=== PATIENT | male | born 1950 | race Caucasian/White ===

== ENCOUNTER 2017-01-18 11:52 | Emergency (ER) | payer MEDICARE, OTHER ==
--- NOTE | 2017-01-18 12:29 | ED Physician Documentation ---
History of Present Illness - Stated complaint Stated Complaint: RAPID HEART RATE - Chief complaint Chief Complaint: Cardiac - History obtained from History obtained from: Patient - History of Present Illness Timing: How many weeks ago (3) Pain level max: 0 Pain level now: 0 Improved by: nothing Worsened by: nothing - Additonal information Additional information: 67 yo M with h/o gastric bypass several years ago. Also has htn and anxiety. noted B LE swelling for 3 weeks. started on lasix by his PCP. Has not been taking it, but took a dose yesterday and still swollen today. States felt anxious this am as well and may have felt his heart skip a beat. Normally sleeps in his recliner. Review of Systems Constitutional: denies: Fever, Chills Nose: denies: Rhinorrhea / runny nose, Congestion Throat: denies: Sore throat Cardiac: reports: Palpitations. denies: Chest pain / pressure Respiratory: denies: Cough GI: denies: Nausea, Vomiting Skin: denies: Rash Musculoskeletal: denies: Neck pain, Back pain Neurologic: denies: Headache PD PAST MEDICAL HISTORY - Past Medical History Past Medical History: No Cardiovascular: Hypertension Respiratory: Sleep apnea, CPAP use Psych: Anxiety Musculoskeletal: Gout - Past Surgical History Past Surgical History: No - Present Medications Home Medications: Ambulatory Orders Medication Instructions Recorded Confirmed Aspirin 01/18/17 Enalapril Maleate 01/18/17 Furosemide 01/18/17 LORazepam [Ativan] 0.5 mg PO BID PRN #7 tablet 01/18/17 Omeprazole 01/18/17 Prazosin [Minipress] 2 01/18/17 Propranolol [Inderal] 01/18/17 - Allergies Allergies/Adverse Reactions: Allergies Allergy/AdvReac Type Severity Reaction Status Date / Time No Known Drug Allergies Allergy Verified 01/18/17 12:04 - Social History Does the pt smoke?: No Smoking Status: Never smoker Does the pt drink ETOH?: No Does the pt have substance abuse?: No - Immunizations Immunizations: TDAP >10years/unknown PD ED PE NORMAL - Vitals Vital signs reviewed: Yes - General General: Alert and oriented X 3, No acute distress, Well developed/nourished - HEENT HEENT: Moist mucous membranes - Neck Neck: Supple, no meningeal sign - Cardiac Cardiac: RRR, Strong equal pulses - Respiratory Respiratory: No respiratory distress, Clear bilaterally - Abdomen Abdomen: Soft, Non tender, Non distended - Back Back: No CVA TTP, No spinal TTP - Derm Derm: Warm and dry, No rash - Extremities Extremities: Other (B LE edema 2+, symmetrical) - Neuro Neuro: Alert and oriented X 3 - Psych Psych: Other (anxious appearing.) Results - Vitals Vitals: Vital Signs - 24 hr 01/18/17 01/18/17 01/18/17 12:02 12:16 13:04 Temperature 36.8 C Heart Rate 61 57 L Respiratory 16 16 Rate Blood Pressure 148/69 H 137/58 H O2 Saturation 97 98 01/18/17 14:05 Temperature Heart Rate 59 L Respiratory 16 Rate Blood Pressure 147/65 H O2 Saturation 96 Oxygen O2 Source Room air - Labs Labs: Laboratory Tests 01/18/17 01/18/17 01/18/17 12:05 12:05 12:05 WBC 6.8 RBC 4.63 L Hgb 13.0 L Hct 38.6 L MCV 83.5 MCH 28.0 MCHC 33.5 RDW 13.9 Plt Count 202 MPV 9.3 Neut # 5.2 Lymph # 1.1 L [place] # 0.4 Eos # 0.1 Baso # 0.0 Absolute Nucleated RBC 0.00 Nucleated RBCs 0.0 Sodium 138 Potassium 4.3 Chloride 101 Carbon Dioxide 28 Anion Gap 9.0 BUN 23 H Creatinine 1.2 Estimated GFR (MDRD) 61 L Glucose 105 H Calcium 9.8 Total Bilirubin 1.0 AST 30 ALT 21 Alkaline Phosphatase 101 Troponin I < 0.04 B-Natriuretic Peptide Total Protein 7.3 Albumin 4.1 Globulin 3.2 Albumin/Globulin Ratio 1.3 Lipase 29 01/18/17 13:13 WBC RBC Hgb Hct MCV MCH MCHC RDW Plt Count MPV Neut # Lymph # [place] # Eos # Baso # Absolute Nucleated RBC Nucleated RBCs Sodium Potassium Chloride Carbon Dioxide Anion Gap BUN Creatinine Estimated GFR (MDRD) Glucose Calcium Total Bilirubin AST ALT Alkaline Phosphatase Troponin I B-Natriuretic Peptide 177 H Total Protein Albumin Globulin Albumin/Globulin Ratio Lipase - Rads (name of study) cxr Radiology: Prelim report reviewed, EMP read contemporaneously, See rad report ( Mild cardiomegaly. ) PD MEDICAL DECISION MAKING - ED course Complexity details: reviewed results, re-evaluated patient, considered differential, d/w patient ED course: Patient is a 67-year-old male with bilateral peripheral edema, this has been chronic for him, but worsening over the past several weeks. He did take a single dose of Lasix without relief. Recommend that he stay on this for a longer amount of time to allow the medication to work. Also recommended elevating his legs at home. No evidence of DVT clinically. No calf tenderness. Symmetrical swelling bilaterally. No acute findings on chest x- ray. Patient counseled regarding signs and symptoms for which I believe and urgent re-evaluation would be necessary. Patient with good understanding of and agreement to plan and is comfortable going home at this time This document was made in part using voice recognition software. While efforts are made to proofread this document, sound alike and grammatical errors may occur. Patient also has severe anxiety, will prescribe a small amount of Ativan for him until he can see his doctor. Departure - Departure Disposition: 01 Home, Self Care Clinical Impression: Peripheral edema, Anxiety Condition: Good Instructions: ED Edema Legs Bilateral Follow-Up: Enzo Blake MD [Primary Care Provider] - Within 1 week Prescriptions: LORazepam [Ativan] 0.5 mg PO BID PRN #7 tablet PRN Reason: Anxiety Comments: Continue your medications at home. Return if you worsen. Elevate your legs at home. Do not drive or operate heavy machinery while taking the ativan Discharge Date/Time: 01/18/17 14:05
[2017-01-18 12:55] LABS: BASOPHILS % (AUTO) 0.5 %; EOSINOPHILS # (AUTO) 0.1 10^3/uL (0.0-0.7); EOSINOPHILS % (AUTO) 1.3 %; HCT - HEMATOCRIT 38.6 % (42.0-52.0); LYMPHOCYTES # (AUTO) 1.1 10^3/uL (1.5-3.5); LYMPHOCYTES % (AUTO) 16.8 %; MEAN CORPUSCULAR HGB CONC 33.5 g/dL (32.0-36.0); MEAN CORPUSCULAR VOLUME 83.5 fL (80.0-94.0); MEAN PLATELET VOLUME 9.3 fL (7.4-11.4); MONOCYTES # (AUTO) 0.4 10^3/uL (0.0-1.0); MONOCYTES % (AUTO) 5.6 %; NEUTROPHILS # (AUTO) 5.2 10^3/uL (1.5-6.6); NEUTROPHILS % (AUTO) 75.8 %; RED BLOOD COUNT 4.63 10^6/uL (4.70-6.10); RED CELL DISTRIBUTION WIDTH 13.9 % (12.0-15.0); UNCORRECTED WHITE BLOOD COUNT 6.8 x10^3/uL; WHITE BLOOD COUNT 6.8 x10^3/uL (4.8-10.8)
[2017-01-18 13:06] LABS: ALBUMIN/GLOBULIN RATIO 1.3 (1.0-2.2); CALCIUM 9.8 mg/dL (8.5-10.3); CREATININE 1.2 mg/dL (0.6-1.2); POTASSIUM 4.3 mmol/L (3.5-5.0); TOTAL PROTEIN 7.3 g/dL (6.7-8.2)
--- NOTE | 2017-01-18 13:19 | XRAY Preliminary Report ---
Exam: XR Chest 1 View IMPRESSION: Mild cardiomegaly. [facility] SITE ID: [id number]
--- NOTE | 2017-01-18 13:26 | XRAY Report ---
EXAM: CHEST RADIOGRAPHY EXAM DATE: 01/18/2017 01:06 PM. CLINICAL HISTORY: Palpitations. COMPARISON: None. TECHNIQUE: 1 view. FINDINGS: Lungs/Pleura: No focal opacities evident. No pleural effusion. No pneumothorax. Mediastinum: Mild cardiomegaly. No adenopathy. Other: None. IMPRESSION: Mild cardiomegaly. [facility] Referring Provider Line: [phone] SITE ID: [id number]
[2017-01-18 14:07] VITALS: BP 147/65
== END 2017-01-18 14:05 | disposition home or self-care (01) ==
LOC: ED 11:52
DX: R60.9 Edema, unspecified (principal); F41.9 Anxiety disorder, unspecified; Z98.84 Bariatric surgery status; I10 Essential (primary) hypertension; M10.9 Gout, unspecified; G47.30 Sleep apnea, unspecified; Z79.82 Long term (current) use of aspirin
CPT/HCPCS: 36415; 71010; 80053; 83690; 83880; 84484; 85025; 93005; 99283; 99284

== ENCOUNTER 2017-09-24 10:39 | Emergency (ER) | payer MEDICARE, OTHER ==
[2017-09-24 10:51] VITALS: BP 155/73
--- NOTE | 2017-09-24 12:11 | ED Physician Documentation ---
PD HPI UPPER EXT INJURY - Stated complaint Stated Complaint: R HAND PX-SWELLING - Chief complaint Chief Complaint: Ext Problem - History obtained from History obtained from: Patient - History of Present Illness Location: Right, Wrist, Hand Type of injury: Other (he does use canes for walking due to bad arthritic knees , so repetitive use. Noted onset of pain in right wrist with some swelling the past couple of days. Very painful.). No: Fall, Twist Where injury occurred: Home Timing - onset: How many days ago (few) Timing - duration: Days Timing - details: Gradual onset, Still present Improved by: Rest Worsened by: Moving, Palpating, Other (gripping his canes) Associated symptoms: Swelling. No: Weakness, Numbness, Discolored Contributing factors: No: Anticoagulated Similar symptoms before: Has not had sx before (not in wrist, but on questioning has had toe pain c/w gout in the past) Recently seen: Not recently seen Review of Systems Constitutional: denies: Fever, Chills Neurologic: denies: Focal weakness, Numbness PD PAST MEDICAL HISTORY - Past Medical History Past Medical History: Yes Cardiovascular: Hypertension Respiratory: Sleep apnea, CPAP use Psych: Anxiety Musculoskeletal: Osteoarthritis, Gout - Past Surgical History Past Surgical History: No - Present Medications Home Medications: Ambulatory Orders Medication Instructions Recorded Confirmed Enalapril Maleate 01/18/17 LORazepam [Ativan] 0.5 mg PO BID PRN #7 tablet 01/18/17 Prazosin [Minipress] 2 01/18/17 Propranolol [Inderal] 01/18/17 Cephalexin [Keflex] 500 mg PO QID #24 capsule 09/24/17 Dexamethasone [Decadron] 4 mg PO DAILY #5 tablet 09/24/17 HYDROcod/ACETAM 5/325 [[place] 5/325] 1 tab PO Q6H PRN #15 tablet 09/24/17 Naproxen [Naprosyn] 500 mg PO BID PRN #20 tablet 09/24/17 - Allergies Allergies/Adverse Reactions: Allergies Allergy/AdvReac Type Severity Reaction Status Date / Time No Known Drug Allergies Allergy Verified 09/24/17 10:51 - Social History Does the pt smoke?: No Smoking Status: Never smoker Does the pt drink ETOH?: No Does the pt have substance abuse?: No - Immunizations Immunizations: TDAP >10years/unknown, Other immun current PD ED PE NORMAL - Vitals Vital signs reviewed: Yes - General General: Alert and oriented X 3, No acute distress, Well developed/nourished, Other (kyphotic, slow walking with poor knee mobility. Good mood and cheerful. ) - Derm Derm: Normal color, Warm and dry - Extremities Extremities: Other (right wrist with swelling and faint redness/warmth dorsally wrist and proximal hand. No skin sores. No deformity. Very tender locally. Palmar side not tender. ) - Neuro Neuro: Alert and oriented X 3, No motor deficit, No sensory deficit Results - Vitals Vitals: Oxygen O2 Source Room air PD MEDICAL DECISION MAKING - ED course Complexity details: considered differential (no acute trauma. Has pain and some swelling dorsum of wrist. Consider arthritis or could be gout. He has had gout in toe in the past. No skin sores nor coloring to suggest infection. ), d/w patient Departure - Departure Disposition: 01 Home, Self Care Clinical Impression: Right wrist pain, Acute arthritis Condition: Stable Record reviewed to determine appropriate education?: Yes Instructions: ED Arthritis Gout Follow-Up: Enzo Blake MD [Primary Care Provider] - Prescriptions: Cephalexin [Keflex] 500 mg PO QID #24 capsule Dexamethasone [Decadron] 4 mg PO DAILY #5 tablet HYDROcod/ACETAM 5/325 [[place] 5/325] 1 tab PO Q6H PRN #15 tablet PRN Reason: Pain Naproxen [Naprosyn] 500 mg PO BID PRN #20 tablet PRN Reason: Pain Comments: Use a wrist splint for comfort for the next several days to week. Gentle range of motion periodically. This may be just regular arthritis from inflammation and use. Consider the idea of gout as a cause. Use Decadron and naproxen as directed for the next 5-7 days. Add Tylenol or hydrocodone if needed for pain. If you have increasing redness or warmth to it or red streaks up, then consider infection instead and add the antibiotics. At this point I would think it more inflammation. Discharge Date/Time: 09/24/17 13:19
[2017-09-24] MEDS ORDERED: IBUPROFEN 600 MG TABLET PO STA (12:12)
[2017-09-24] MEDS ORDERED: ACETAMINOPHEN 325 MG TABLET PO STA (12:12)
[2017-09-24] MEDS ORDERED: DEXAMETHASONE 10 MG/ML VIAL PO STA (12:12)
== END 2017-09-24 13:19 | disposition home or self-care (01) ==
LOC: ED 10:39
DX: M25.531 Pain in right wrist (principal); M19.90 Unspecified osteoarthritis, unspecified site; I10 Essential (primary) hypertension
CPT/HCPCS: 99283; A9270

== ENCOUNTER 2019-07-28 20:40 | Emergency (ER) | payer MEDICARE, OTHER ==
--- NOTE | 2019-07-28 21:02 | ED Physician Documentation ---
PD HPI UPPER EXT INJURY - Stated complaint Stated Complaint: RT SHOULDER PX - Chief complaint Chief Complaint: Ext Problem - History obtained from History obtained from: Patient - History of Present Illness Location: Right, Shoulder, Arm Type of injury: Fall (He states he normally walks with 2 canes due to his knee pains. He is due to get a knee replacement in September. He was walking down some steps holding the rail and lost balance on the slippery step and fell down 2 steps while still holding the rail causing a backwards twisting of his shoulder. He has pain in the shoulder. He denies other injury.) Where injury occurred: Home Timing - onset: Today (30 minutes [facility] NURSE) Timing - details: Abrupt onset, Still present Worsened by: Moving, Palpating Associated symptoms: No: Weakness, Numbness Similar symptoms before: Has not had sx before Recently seen: Not recently seen Review of Systems Skin: denies: Abrasion (s), Laceration (s) Musculoskeletal: denies: Neck pain Neurologic: denies: Focal weakness, Numbness, Head injury PD PAST MEDICAL HISTORY - Past Medical History Past Medical History: Yes Cardiovascular: Hypertension Respiratory: Sleep apnea, CPAP use Psych: Anxiety Musculoskeletal: Osteoarthritis, Gout - Past Surgical History Past Surgical History: Yes General: Other - Present Medications Home Medications: Ambulatory Orders Medication Instructions Recorded Confirmed Enalapril Maleate 10 mg PO DAILY 01/18/17 07/28/19 Prazosin [Minipress] 2 mg PO DAILY 01/18/17 07/28/19 ALPRAZolam [Alprazolam] 0.5 tab PO TID PRN 07/28/19 07/28/19 Omeprazole 20 mg PO QDAC 07/28/19 07/28/19 Propranolol HCl 1 tab PO BID 07/28/19 07/28/19 Zolpidem Tartrate [Ambien] 10 mg PO QPM PRN 07/28/19 07/28/19 - Allergies Allergies/Adverse Reactions: Allergies Allergy/AdvReac Type Severity Reaction Status Date / Time No Known Drug Allergies Allergy Verified 07/28/19 20:45 - Social History Does the pt smoke?: No Smoking Status: Never smoker Does the pt drink ETOH?: No Does the pt have substance abuse?: No - Immunizations Immunizations are current?: Yes Immunizations: TDAP >10years/unknown, Other immun current - POLST Patient has POLST: No PD ED PE NORMAL - Vitals Vital signs reviewed: Yes - General General: Alert and oriented X 3, Well developed/nourished, Other (appears uncomfortable with guarded ROM of the right shoulder) - HEENT HEENT: Atraumatic - Neck Neck: Supple, no meningeal sign, No bony TTP - Derm Derm: Normal color, Warm and dry - Neuro Neuro: Alert and oriented X 3, No motor deficit, No sensory deficit, Normal speech Results - Vitals Vitals: Vital Signs - 24 hr 07/28/19 07/28/19 20:46 22:38 Temperature 36.5 C 36.7 C Heart Rate 70 78 Respiratory 16 18 Rate Blood Pressure 200/100 H 181/101 H O2 Saturation 99 98 Oxygen O2 Source Room air - Rads (name of study) right humerus Radiology: Prelim report reviewed, See rad report (no fractures nor dislocation) PD MEDICAL DECISION MAKING - ED course Complexity details: considered differential (There is no fracture seen on x-ray. His shoulders hurting less now that he has had some time here in the ER. There is no gross laxity on range of motion. He does need to use 2 canes to help support to him while walking due to his knees. I feel his shoulder will be okay using the cane lightly on that side. He is due to get a walker tomorrow so declined one from here tonight. This may be a little sturdier for him for support with the to arms.), d/w patient Departure - Departure Disposition: 01 Home, Self Care Clinical Impression: Right shoulder strain Qualifiers: Encounter type: initial encounter Qualified Code(s): S46.911A - Strain of unspecified muscle, fascia and tendon at shoulder and upper arm level, right arm, initial encounter Condition: Stable Record reviewed to determine appropriate education?: Yes Instructions: ED Sprain Shoulder Follow-Up: Enzo Blake MD [Primary Care Provider] - Comments: It is okay to be using your arm with your cane or a walker based on tolerance of comfort. If you do have a strain or partial tear of the shoulder muscles, you particularly to 1 to be doing overhead reaching, heavy lifting or push pull. Otherwise some use is okay. You could use some anti-inflammatories such as ibuprofen or naproxen twice daily for the next week or so. Add Tylenol 4 times a day if needed for pains. Call your orthopedist and see if you would like to follow-up with you in about a week or so, to see how your shoulder is healing. Discharge Date/Time: 07/28/19 22:43
--- NOTE | 2019-07-28 21:07 | ED Physician Documentation ---
History of Present Illness - Stated complaint Stated Complaint: RT SHOULDER PX - Chief complaint Chief Complaint: Ext Problem PD PAST MEDICAL HISTORY - Past Medical History Cardiovascular: Hypertension Respiratory: Sleep apnea, CPAP use Psych: Anxiety Musculoskeletal: Osteoarthritis, Gout - Past Surgical History Past Surgical History: No - Present Medications Home Medications: Ambulatory Orders Medication Instructions Recorded Confirmed Enalapril Maleate 01/18/17 LORazepam [Ativan] 0.5 mg PO BID PRN #7 tablet 01/18/17 Prazosin [Minipress] 2 01/18/17 Propranolol [Inderal] 01/18/17 Cephalexin [Keflex] 500 mg PO QID #24 capsule 09/24/17 HYDROcod/ACETAM 5/325 [[place] 5/325] 1 tab PO Q6H PRN #15 tablet 09/24/17 Naproxen [Naprosyn] 500 mg PO BID PRN #20 tablet 09/24/17 dexAMETHasone [Decadron] 4 mg PO DAILY #5 tablet 09/24/17 - Allergies Allergies/Adverse Reactions: Allergies Allergy/AdvReac Type Severity Reaction Status Date / Time No Known Drug Allergies Allergy Verified 07/28/19 20:45 - Social History Does the pt smoke?: No Smoking Status: Never smoker Does the pt drink ETOH?: No Does the pt have substance abuse?: No - Immunizations Immunizations: TDAP >10years/unknown, Other immun current Results - Vitals Vitals: Vital Signs - 24 hr 07/28/19 20:46 Temperature 36.5 C Heart Rate 70 Respiratory 16 Rate Blood Pressure 200/100 H O2 Saturation 99 Oxygen O2 Source Room air
[2019-07-28] MEDS ORDERED: oxyCODONE 5 MG TABLET PO STA (21:18)
[2019-07-28] MEDS ORDERED: ACETAMINOPHEN 325 MG TABLET PO STA (21:18)
--- NOTE | 2019-07-28 21:59 | XRAY Report ---
Reason: twisted right shoulder when fell on stairs Procedure Date: 07/28/2019 Accession Number: [id number] / [id number] Procedure: XR - Humerus RT CPT Code: Final Report FULL RESULT: EXAM: RIGHT HUMERUS RADIOGRAPHY EXAM DATE: 07/28/2019 09:37 PM. CLINICAL HISTORY: Twisted right shoulder when fell on stairs. COMPARISON: None. TECHNIQUE: 2 views. FINDINGS: Bones: Small spur off the posterior aspect of the olecranon. No fractures or bone lesions. Joints: Normal. No effusions or subluxations in the visualized shoulder or elbow joints. Soft Tissues: Normal. No soft tissue swelling. IMPRESSION: Normal humerus radiography. [facility]
[2019-07-28] MEDS ORDERED: oxyCODONE/ACET 5/325 Prepack 4 PO STA (22:32)
[2019-07-28 22:43] VITALS: BP 181/101
== END 2019-07-28 22:43 | disposition home or self-care (01) ==
LOC: ED 20:40
DX: S46.911A Strain of unspecified muscle, fascia and tendon at shoulder and upper arm level, right arm, initial encounter (principal); W10.9XXA Fall (on) (from) unspecified stairs and steps, initial encounter; Y93.01 Activity, walking, marching and hiking; Y92.009 Unspecified place in unspecified non-institutional (private) residence as the place of occurrence of the external cause; I10 Essential (primary) hypertension
CPT/HCPCS: 73060; 99283; 99284; A9270

== ENCOUNTER 2019-09-20 16:02 | Outpatient (CLI) | payer MEDICARE, OTHER | END 2019-09-20 16:03 | disposition critical access hospital (66) | LOC: EMS 16:02 | PROVIDERS: ATTEND Surgery | DX: M25.561 Pain in right knee (principal); R53.1 Weakness | CPT/HCPCS: A0425; A0429 ==

== ENCOUNTER 2019-09-20 16:29 | Emergency (ER) | payer MEDICARE, OTHER ==
--- NOTE | 2019-09-20 17:33 | ED Physician Documentation ---
PD HPI LOWER EXT INJURY - Stated complaint Stated Complaint: R KNEE WEAKNESS - Chief complaint Chief Complaint: Ext Problem - History obtained from History obtained from: Patient - History of Present Illness PD HPI LOW EXT INJURY LOCATION: Right (This is a very pleasant 69-year-old gentleman with osteoarthritis of both knees. He had his left knee replaced at [facility] 5 days ago and has been recuperating at home. From a pain perspective he is doing very well taking minimal oxycodone. Starting about yesterday, he says his right knee has been giving out on him. He said his right knee was actually also always worst than the left and he was curious as to why they replaced the left 1 first. He will be having the right knee replaced at some point. Regardless he feels like his right knee is loose and cannot put full weight on it. He denies numbness or tingling in that leg. No headache.) Review of Systems Constitutional: denies: Fever, Chills Throat: denies: Dental pain / toothache, Sore throat Cardiac: denies: Chest pain / pressure, Palpitations Respiratory: denies: Dyspnea, Cough PD PAST MEDICAL HISTORY - Past Medical History Cardiovascular: Hypertension Respiratory: Sleep apnea, CPAP use Psych: Anxiety Musculoskeletal: Osteoarthritis, Gout - Past Surgical History Past Surgical History: Yes General: Other - Present Medications Home Medications: Ambulatory Orders Medication Instructions Recorded Confirmed Enalapril Maleate 10 mg PO DAILY 01/18/17 07/28/19 Prazosin [Minipress] 2 mg PO DAILY 01/18/17 07/28/19 ALPRAZolam [Alprazolam] 0.5 tab PO TID PRN 07/28/19 07/28/19 Omeprazole 20 mg PO QDAC 07/28/19 07/28/19 Propranolol HCl 1 tab PO BID 07/28/19 07/28/19 Zolpidem Tartrate [Ambien] 10 mg PO QPM PRN 07/28/19 07/28/19 Acetaminophen [Mapap] 500 mg PO 09/20/19 Aspirin 325 mg PO 09/20/19 Meloxicam [Mobic] 7.5 mg PO DAILY 09/20/19 09/20/19 - Allergies Allergies/Adverse Reactions: Allergies Allergy/AdvReac Type Severity Reaction Status Date / Time No Known Drug Allergies Allergy Verified 09/20/19 16:37 - Social History Does the pt smoke?: No Smoking Status: Never smoker Does the pt drink ETOH?: No Does the pt have substance abuse?: No - Immunizations Immunizations are current?: Yes Immunizations: TDAP >10years/unknown, Other immun current - POLST Patient has POLST: No PD ED PE NORMAL - Vitals Vital signs reviewed: Yes - General General: Alert and oriented X 3, No acute distress - Extremities Extremities: Other (The right knee is without effusion, there is no tenderness. Passive range of motion seems pretty normal. He has normal strength in flexion and extension at the right ankle. The left knee, the dressing was not removed but around the dressing it looks fine. Distal to the knees on both sides he has symmetric sensation and no calf tenderness or swelling.) - Neuro Neuro: Alert and oriented X 3, Normal speech Results - Vitals Vitals: Vital Signs - 24 hr 09/20/19 16:31 Temperature 36.8 C Heart Rate 56 L Respiratory 18 Rate Blood Pressure 147/75 H O2 Saturation 99 Oxygen O2 Source Room air PD MEDICAL DECISION MAKING - ED course ED course: 69-year-old gentleman with left knee replacement a few days ago but known right knee-itis presents because of some dysfunction due to the right knee. Stroke is considered but is no evidence of this on examination. He was placed in a knee immobilizer and he regained his functionality and was able to walk independently with a walker. Departure - Departure Disposition: 01 Home, Self Care Clinical Impression: Osteoarthritis of right knee Qualifiers: Osteoarthritis type: primary Qualified Code(s): M17.11 - Unilateral primary osteoarthritis, right knee Condition: Good Record reviewed to determine appropriate education?: Yes Instructions: Total Knee Replace Minimal Invasive Tx, Knee Osteoarthritis Comments: Follow-up with your knee surgeon as scheduled. You can wear the knee immobilizer both for comfort and functionality. Return for new or worsening symptoms.
[2019-09-20 18:44] VITALS: BP 136/80
== END 2019-09-20 19:01 | disposition home or self-care (01) ==
LOC: EDUNIT# → ED 16:29
DX: M17.11 Unilateral primary osteoarthritis, right knee (principal); Z96.652 Presence of left artificial knee joint; I10 Essential (primary) hypertension
CPT/HCPCS: 99283

== ENCOUNTER 2020-01-19 19:40 | Outpatient (CLI) | payer MEDICARE, OTHER | END 2020-01-19 19:41 | disposition critical access hospital (66) | LOC: EMS 19:40 | PROVIDERS: ATTEND Surgery | DX: R42 Dizziness and giddiness (principal); R09.89 Other specified symptoms and signs involving the circulatory and respiratory systems | CPT/HCPCS: A0425; A0429 ==

== ENCOUNTER 2020-01-19 20:10 | Emergency (ER) | payer MEDICARE, OTHER ==
--- NOTE | 2020-01-19 20:27 | ED Physician Documentation ---
History of Present Illness - Stated complaint Stated Complaint: DIZZY - Chief complaint Chief Complaint: Neuro - History obtained from History obtained from: Patient - Additonal information Additional information: 70-year-old gentleman presents by ambulance for dizziness. He says he has a recent diagnosis of vestibular issues, but today noticed some palpitations and skipped beats. This did not make his dizziness worse but he became anxious about it. He did not actually want to come to the hospital but was talked into it by paramedics. They noted significant ectopy in route. They said that cas orresponded to his symptoms, but while I am in the bed on the monitor, he is dizzy constantly and the ectopy is not associated with his dizziness. The ectopy is sometimes frequent and sometimes rare. Review of Systems Constitutional: denies: Fever, Chills Nose: denies: Rhinorrhea / runny nose, Congestion Cardiac: reports: Palpitations. denies: Chest pain / pressure, Pedal edema, Calf pain Respiratory: denies: Dyspnea, Cough GI: denies: Abdominal Pain PD PAST MEDICAL HISTORY - Past Medical History Cardiovascular: Hypertension Respiratory: Sleep apnea, CPAP use Neuro: None Endocrine/Autoimmune: None GI: None : None HEENT: None Psych: Anxiety Musculoskeletal: Osteoarthritis, Gout Derm: None - Past Surgical History Past Surgical History: Yes General: Other Ortho: Knee replacement - Present Medications Home Medications: Ambulatory Orders Medication Instructions Recorded Confirmed Enalapril Maleate 10 mg PO DAILY 01/18/17 07/28/19 Prazosin [Minipress] 2 mg PO DAILY 01/18/17 07/28/19 ALPRAZolam [Alprazolam] 0.5 tab PO TID PRN 07/28/19 07/28/19 Omeprazole 20 mg PO QDAC 07/28/19 07/28/19 Propranolol HCl 1 tab PO BID 07/28/19 07/28/19 Zolpidem Tartrate [Ambien] 10 mg PO QPM PRN 07/28/19 07/28/19 Acetaminophen [Mapap] 500 mg PO 09/20/19 Aspirin 325 mg PO 09/20/19 Meloxicam [Mobic] 7.5 mg PO DAILY 09/20/19 09/20/19 - Allergies Allergies/Adverse Reactions: Allergies Allergy/AdvReac Type Severity Reaction Status Date / Time No Known Drug Allergies Allergy Verified 09/20/19 16:37 - Social History Does the pt smoke?: No Smoking Status: Never smoker Does the pt drink ETOH?: No Does the pt have substance abuse?: No - Immunizations Immunizations are current?: Yes Immunizations: TDAP >10years/unknown, Other immun current - POLST Patient has POLST: No PD ED PE NORMAL - Vitals Vital signs reviewed: Yes - General General: Alert and oriented X 3, No acute distress - HEENT HEENT: PERRL, EOMI - Neck Neck: Supple, no meningeal sign, No bony TTP - Cardiac Cardiac: RRR (With frequent ectopy), No murmur - Respiratory Respiratory: Clear bilaterally - Abdomen Abdomen: Non tender - Extremities Extremities: No deformity, No tenderness to palpate - Neuro Neuro: Alert and oriented X 3, 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, No motor deficit, No sensory deficit, Normal speech Results - Vitals Vitals: Vital Signs - 24 hr 01/19/20 01/19/20 20:10 20:34 Temperature 37.0 C Heart Rate 71 Respiratory 15 Rate Blood Pressure 140/91 H O2 Saturation 99 Oxygen O2 Source Room air - EKG (time done) 2019 Rate: Rate (enter#) (65) Rhythm: NSR (with occ PAC and PVCs on monitor) [place]: Normal Intervals: Normal AR, Other (borderline IVCD) Ischemia: Normal ST segments - Labs Labs: Laboratory Tests 01/19/20 01/19/20 20:36 20:36 WBC 3.6 L RBC 3.81 L Hgb 10.8 L Hct 33.8 L MCV 88.7 MCH 28.3 MCHC 32.0 RDW 13.2 Plt Count 149 MPV 9.2 Neut # (Auto) 2.3 Lymph # (Auto) 0.9 L [place] # (Auto) 0.3 Eos # (Auto) 0.1 Baso # (Auto) 0.0 Absolute Nucleated RBC 0.00 Nucleated RBC % 0.0 Sodium 137 Potassium 4.1 Chloride 101 Carbon Dioxide 27 Anion Gap 9.0 BUN 23 H Creatinine 0.9 Estimated GFR (MDRD) 84 L Glucose 91 Calcium 9.9 Magnesium 1.9 Total Bilirubin 1.2 H AST 21 ALT 18 Alkaline Phosphatase 75 Total Protein 6.1 L Albumin 4.0 Globulin 2.1 Albumin/Globulin Ratio 1.9 Lipase 34 PD MEDICAL DECISION MAKING - ED course ED course: 70-year-old gentleman with chronic dizziness now has palpitations due to ectopy. No concerning findings on labs. Ectopy was fairly rare on the monitor. Departure - Departure Disposition: 01 Home, Self Care Clinical Impression: Ventricular ectopy Condition: Good Record reviewed to determine appropriate education?: Yes Instructions: ED Palpitations Comments: You are having some occasional skipped beats, this is not particularly dangerous. Follow-up with your primary care physician, return for new or worsening symptoms.
[2020-01-19 20:42] LABS: BASOPHILS % (AUTO) 0.6 %; EOSINOPHILS # (AUTO) 0.1 10^3/uL (0.0-0.7); EOSINOPHILS % (AUTO) 1.7 %; HGB - HEMOGLOBIN 10.8 g/dL (14.0-18.0); LYMPHOCYTES # (AUTO) 0.9 10^3/uL (1.5-3.5); LYMPHOCYTES % (AUTO) 25.7 %; MEAN CORPUSCULAR HEMOGLOBIN 28.3 pg (27.0-31.0); MEAN CORPUSCULAR VOLUME 88.7 fL (80.0-94.0); MEAN PLATELET VOLUME 9.2 fL (7.4-11.4); MONOCYTES # (AUTO) 0.3 10^3/uL (0.0-1.0); MONOCYTES % (AUTO) 8.1 %; NEUTROPHILS # (AUTO) 2.3 10^3/uL (1.5-6.6); NEUTROPHILS % (AUTO) 63.6 %; PLT - PLATELET COUNT 149 10^3/uL (130-450); RED BLOOD COUNT 3.81 10^6/uL (4.70-6.10); RED CELL DISTRIBUTION WIDTH 13.2 % (12.0-15.0); WHITE BLOOD COUNT 3.6 x10^3/uL (4.8-10.8)
[2020-01-19 20:54] LABS: ALBUMIN/GLOBULIN RATIO 1.9 (1.0-2.2); BILIRUBIN,TOTAL 1.2 mg/dL (0.2-1.0); CALCIUM 9.9 mg/dL (8.5-10.3); CREATININE 0.9 mg/dL (0.6-1.2); MAGNESIUM 1.9 mg/dL (1.7-2.8); TOTAL PROTEIN 6.1 g/dL (6.7-8.2)
[2020-01-19 21:14] VITALS: BP 133/82
== END 2020-01-19 21:27 | disposition home or self-care (01) ==
LOC: EDBD → EDUNIT# → ED 20:10
DX: I49.3 Ventricular premature depolarization (principal); I49.1 Atrial premature depolarization; R42 Dizziness and giddiness; I10 Essential (primary) hypertension; Z79.82 Long term (current) use of aspirin
CPT/HCPCS: 36415; 80053; 83690; 83735; 85025; 93005; 99284

== ENCOUNTER 2020-12-29 15:27 | Outpatient (CLI) | payer MEDICARE, OTHER ==
--- NOTE | 2020-12-29 18:52 | XRAY Report ---
PROCEDURE: Hips 2V BILAT INDICATIONS: BILATERAL HIP PAIN TECHNIQUE: 2 views of the left and right hip were acquired. COMPARISON: Not available. FINDINGS: Bones: No fractures or dislocations. No suspicious bony lesions. The visualized pelvic ring appear s intact. Mild degenerative joint disease in hips and sacroiliac joints bilaterally. Severe degenera tive disc disease in the lower lumbar spine. Soft tissues: No suspicious soft tissue calcifications or masses. IMPRESSION: 1. Mild osteoarthritic changes in hips and sacroiliac joints bilaterally. 2. Moderate degenerative disc disease in the lower lumbar spine. Reviewed by: Dior Beverly MD on 12/29/2020 6:51 PM PDT Approved by: Dior Beverly MD on 12/29/2020 6:51 PM PDT Station ID: [id number]
== END 2020-12-29 15:28 | disposition home or self-care (01) ==
LOC: DI 15:27
PROVIDERS: ATTEND Family Medicine
DX: M16.0 Bilateral primary osteoarthritis of hip (principal); M47.898 Other spondylosis, sacral and sacrococcygeal region; M51.36 Other intervertebral disc degeneration, lumbar region